=== PATIENT | female | born 1940 | race Two or more races ===

== ENCOUNTER 2017-03-30 11:03 | Day surgery (SDC) | payer BC, OTHER ==
[~2017-03-30 11:03] MED LIST: BALANCED SALT IRRIG SOLN COMB1 500 ML, VANCOMYCIN FOR BSS PLUS 10 MG, GENTAMICIN SULFAT... IO ONE; NORMAL SALINE 0.5 ML, VANCOMYCIN FOR BSS PLUS 5 MG MC ONE
[2017-03-30] MEDS ORDERED: ONDANSETRON IV *ER 4 MG/2 ML VIAL IV ONE (11:04)
[2017-03-30] MEDS ORDERED: LABETALOL HCL 100 MG/20 ML VIAL MC ONE (11:04)
[2017-03-30] MEDS ORDERED: CYCLOPENTOLATE 1% OPHT DROP 2 ML BOTTLE ONE (11:30)
[2017-03-30] MEDS ORDERED: CIPROFLOXACIN 0.3% OPHT DROP 2.5 ML BOTTLE ONE (11:30)
[2017-03-30] MEDS ORDERED: PROPARACAINE 0.5% OPHT DROP 15 ML BOTTLE ONE (11:30)
[2017-03-30] MEDS ORDERED: PHENYLEPHRINE 2.5% OPHT DROP 2 ML BOTTLE ONE (11:31)
[2017-03-30] MEDS ORDERED: TROPICAMIDE 1% OPHT DROP 3 ML BOTTLE ONE (11:31)
[2017-03-30] MEDS ORDERED: KETOROLAC 0.5% OPHT DROP 3 ML BOTTLE ONE (11:32)
[2017-03-30] MEDS ORDERED: LIDOCAINE-MPF 1% 5 ML AMPUL ONE (11:53)
[2017-03-30] MEDS ORDERED: TETRACAINE HCL 0.5% OPHT DROP 2 ML BOTTLE ONE (11:53)
[2017-03-30] MEDS ORDERED: HYALURONATE SODIUM 8.5 MG/0.85 ML DISP.SYRIN ONE (11:54)
[2017-03-30] MEDS ORDERED: ACETYLCHOLINE CHLORIDE 1% OPHT 1 EA KIT ONE (11:54)
[2017-03-30] MEDS ORDERED: BALANCED SALT IRRIG SOLN COMB2 15 ML IRRIG.SOLN ONE (11:54)
[2017-03-30] MEDS ORDERED: MIDAZOLAM HCL 2 MG/2 ML VIAL ONE (13:23)
[2017-03-30] MEDS ORDERED: FENTANYL CITRATE 100 MCG/2 ML AMPUL ONE (13:23)
== END 2017-03-30 16:15 | disposition home or self-care (01) ==
LOC: DS 11:03
PROVIDERS: ATTEND Ophthalmology
DX: H25.9 Unspecified age-related cataract (principal); Z88.8 Allergy status to other drugs, medicaments and biological substances; D64.9 Anemia, unspecified; I73.9 Peripheral vascular disease, unspecified; I10 Essential (primary) hypertension; E78.5 Hyperlipidemia, unspecified; Z90.710 Acquired absence of both cervix and uterus; Z82.49 Family history of ischemic heart disease and other diseases of the circulatory system; Z80.3 Family history of malignant neoplasm of breast; Z90.49 Acquired absence of other specified parts of digestive tract; F41.9 Anxiety disorder, unspecified; F32.9 Major depressive disorder, single episode, unspecified; K21.9 Gastro-esophageal reflux disease without esophagitis; E55.9 Vitamin D deficiency, unspecified; I25.10 Atherosclerotic heart disease of native coronary artery without angina pectoris; Z79.899 Other long term (current) drug therapy
CPT/HCPCS: 66984; A4663; J0171; J1580; J2250; J2405; J3010; J3370 ×2; J3490 ×2; J7120; J7321; V2632

== ENCOUNTER 2017-04-20 07:46 | Day surgery (SDC) | payer BC, OTHER ==
[2017-04-20 08:11] LABS: *BILIRUBIN,URIN NEGATIVE (NEGATIVE); *BLOOD, URINE NEGATIVE (NEGATIVE); *CLARITY,URINE CLEAR (CLEAR); *COLOR,URINE YELLOW (YELLOW); *KETONES,URINE NEGATIVE (NEGATIVE); *PROTEIN,URINE NEGATIVE (NEGATIVE); *UROBILINOGEN,URINE 0.2 E.U./dl (NORMAL); LEUKOCYTE ESTERASE ,URINE TRACE (NEGATIVE); NITRITE, URINE NEGATIVE (NEGATIVE); UGLUCOSE NEGATIVE (NEGATIVE)
[2017-04-20] MEDS ORDERED: CIPROFLOXACIN 0.3% OPHT DROP 2.5 ML BOTTLE ONE (08:13)
[2017-04-20] MEDS ORDERED: PROPARACAINE 0.5% OPHT DROP 15 ML BOTTLE ONE (08:13)
[2017-04-20] MEDS ORDERED: PHENYLEPHRINE 2.5% OPHT DROP 2 ML BOTTLE ONE (08:14)
[2017-04-20] MEDS ORDERED: CYCLOPENTOLATE 1% OPHT DROP 2 ML BOTTLE ONE (08:14)
[2017-04-20] MEDS ORDERED: TROPICAMIDE 1% OPHT DROP 3 ML BOTTLE ONE (08:15)
[2017-04-20] MEDS ORDERED: KETOROLAC 0.5% OPHT DROP 3 ML BOTTLE ONE (08:15)
[2017-04-20 08:25] LABS: BACTERIA,URINE NONE SEEN /HPF (NONE SEEN); SQUAMOUS EPITHELIAL CELL,UR FEW /HPF (NONE SEEN); WBC,URINE 20-50 /HPF (0-3)
[2017-04-20] MEDS ORDERED: TETRACAINE HCL 0.5% OPHT DROP 2 ML BOTTLE ONE (08:29)
[2017-04-20] MEDS ORDERED: BALANCED SALT IRRIG SOLN COMB2 15 ML IRRIG.SOLN ONE (08:29)
[2017-04-20] MEDS ORDERED: ACETYLCHOLINE CHLORIDE 1% OPHT 1 EA KIT ONE (08:29)
[2017-04-20] MEDS ORDERED: HYALURONATE SODIUM 8.5 MG/0.85 ML DISP.SYRIN ONE (08:29)
[2017-04-20 08:33] LABS: BASOPHILS # (AUTO) 0.1 K/uL (0.0-8.0); BASOPHILS % (AUTO) 0.6 % (0.0-2.0); EOSINOPHILS # (AUTO) 0.1 K/uL (0.0-0.7); EOSINOPHILS % (AUTO) 0.6 % (0.0-7.0); HEMATOCRIT 37.6 % (31.2-41.9); HEMOGLOBIN 13.1 g/dL (10.9-14.3); LYMPHOCYTES % (AUTO) 20.5 % (20.5-51.5); MEAN CORPUSCULAR HEMOGLOBIN 30.8 uug (24.7-32.8); MEAN CORPUSCULAR HGB CONC 35 g/dL (32.3-35.6); MEAN CORPUSCULAR VOLUME 88.6 fL (75.5-95.3); MONOCYTES # (AUTO) 0.7 K/uL (2.0-10.0); MONOCYTES % (AUTO) 6.7 % (0.0-11.0); NEUTROPHILS # (AUTO) 7.1 K/uL (1.8-8.9); NEUTROPHILS % (AUTO) 71.6 % (38.5-71.5); PLATELET COUNT (AUTO) 261 K/uL (179-408); RED BLOOD CELL COUNT(AUTO) 4.24 MIL/uL (3.63-4.92)
[2017-04-20] MEDS ORDERED: MIDAZOLAM HCL 2 MG/2 ML VIAL ONE (09:13)
[2017-04-20] MEDS ORDERED: FENTANYL CITRATE 100 MCG/2 ML AMPUL ONE (09:13)
[2017-04-20 09:15] LABS: CARBON DIOXIDE 26 mmol/L (21-32); CHLORIDE 107 mmol/L (98-107); GLUCOSE 97 mg/dL (74-106); POTASSIUM 3.9 mmol/L (3.5-5.1); UREA NITROGEN, BLOOD 32 mg/dL (7-18)
== END 2017-04-20 11:38 | disposition home or self-care (01) ==
LOC: DS 07:46
PROVIDERS: ATTEND Ophthalmology
DX: H26.9 Unspecified cataract (principal); I25.10 Atherosclerotic heart disease of native coronary artery without angina pectoris; I10 Essential (primary) hypertension; K21.9 Gastro-esophageal reflux disease without esophagitis; Z88.8 Allergy status to other drugs, medicaments and biological substances; G89.29 Other chronic pain; M19.90 Unspecified osteoarthritis, unspecified site; F41.9 Anxiety disorder, unspecified; R00.0 Tachycardia, unspecified; Z90.710 Acquired absence of both cervix and uterus
CPT/HCPCS: 36415; 66984; 80048; 81001; 85025; 85730; A4663; J0171; J1580; J2250; J3010; J3370 ×2; J7120; J7321; V2632

== ENCOUNTER 2018-10-11 17:18 | Inpatient (IN) | payer BC, MEDICARE, OTHER ==
[~2018-10-11] VITALS: Ht 152.4 cm; Wt 72.6 kg
[2018-10-11 16:50] VITALS: BP 187/92
[2018-10-11] MEDS ORDERED: ACET-2154 PO (17:45)
[2018-10-11] MEDS ORDERED: ALPR0.255 PO (17:45)
[2018-10-11] MEDS ORDERED: DOCU250C14 PO (17:49)
[2018-10-11] MEDS ORDERED: ATOR40TA PO (17:49)
[2018-10-11] MEDS ORDERED: DILT300C36 PO (17:49)
[2018-10-11] MEDS ORDERED: PANT40TA4 PO (18:00)
[2018-10-11] MEDS ORDERED: ENOX40DI SQ (18:00)
[2018-10-11] MEDS ORDERED: BUPR150T5 PO (18:00)
[2018-10-11] MEDS ORDERED: ISOS60TA4 PO (18:00)
[2018-10-11] MEDS ORDERED: ACETAMINOPHEN 325 MG TABLET PO PRN (18:00)
[2018-10-11] MEDS ORDERED: SENN-18 PO (18:00)
[2018-10-11] MEDS ORDERED: HYDR100T27 PO (18:00)
[2018-10-11] MEDS ORDERED: DULO30CA2 PO (18:00)
[2018-10-11] MEDS ORDERED: ALPRAZOLAM 0.25 MG TABLET PO PRN (18:00)
--- NOTE | 2018-10-11 18:14 | NUR ---
Patient arrived to unit at 1710 via gurney and ambulanz service, vitals noted at 178/92, 99.0 oral temperature, 91 HR, 98% O2 on room air, pain 6/10, SPINNER OPERATOR MD Bernadette Feliciano notified of patients arrival and pain level with orders for percocet and Mscontin as displayed in EMAR, call light placed in reach, bed locked and in lowest position
[2018-10-11] MEDS ORDERED: OXYCODONE/APAP 5-325 MG TABLET PO PRN (18:15)
[2018-10-11] MEDS: ISOSORBIDE MONONITRATE 60 MG TAB.SR.24H PO SCH (20:06)
[2018-10-11] MEDS: ATORVASTATIN 40 MG TABLET PO SCH (20:06)
[2018-10-11] MEDS: hydrALAZINE HCL 50 MG TABLET PO SCH (20:07)
[2018-10-11] MEDS: SENNOSIDES 1 TABLET PO SCH (20:07)
[2018-10-11] MEDS: DULOXETINE 30 MG CAPSULE.DR PO SCH (20:07)
[2018-10-11] MEDS ORDERED: MORPHINE SULFATE SR 30 MG TABLET.SA PO SCH (21:00)
[2018-10-11] MEDS ORDERED: MORPHINE SULFATE SR 15 MG TABLET.SA PO SCH (21:00)
[2018-10-11 21:03] VITALS: BP 177/82
--- NOTE | 2018-10-11 21:54 | NUR ---
Received pt resting in bed. AAO x4. No acute distress noted. Denies pain or discomfort. Meds given as ordered. Pertinent assessment done. Safety measures maintained. Call light and personal belongings within reach. Will continue to monitor.
[2018-10-12 04:45] VITALS: BP 155/86
[2018-10-12] MEDS: PANTOPRAZOLE SODIUM 40 MG TABLET.DR PO SCH (06:32)
[2018-10-12] MEDS: ENOXAPARIN SODIUM 40 MG/0.4 ML DISP.SYRIN SQ SCH (08:11)
[2018-10-12] MEDS: buPROPion SR 150 MG TABLET.SA PO SCH (08:13)
[2018-10-12] MEDS: HYDROCODONE/APAP 5-325MG TABLET PO PRN ×2 (08:14→14:01)
[2018-10-12] MEDS: DOCUSATE SODIUM 250 MG CAPSULE PO SCH (08:14)
[2018-10-12] MEDS: hydrALAZINE HCL 50 MG TABLET PO SCH ×2 (08:17→21:32)
[2018-10-12] MEDS: DILTIAZEM HCL CD 300 MG CAP.SR.24H PO SCH (08:18)
--- NOTE | 2018-10-12 08:20 | NUR ---
Received patient, awake alert x4. Not in any form of distress. With pain over left lower back. PRN [place] given. Morning care done.
[2018-10-12 09:06] VITALS: BP 159/93
--- NOTE | 2018-10-12 14:20 | NUR ---
Up with physical therapy, tolerating well. [place] 5-325 given. Patient able to ambulate with FWW with assist.
[2018-10-12] MEDS ORDERED: OXYCODONE HCL 5 MG TABLET PO PRN (16:00)
[2018-10-12] MEDS ORDERED: BISACODYL 5 MG TABLET.DR PO PRN (16:00)
[2018-10-12 16:34] VITALS: BP 159/72
[2018-10-12] MEDS: OXYCODONE HCL 5 MG TABLET PO PRN (19:01)
--- NOTE | 2018-10-12 19:45 | NUR ---
RECEIVED REPORT FROM STEW WESTBROOK. PT IS STABLE AND IS RESTING IN BED. Imelda PEÑA RN
[2018-10-12 19:46] VITALS: BP 157/81
[2018-10-12] MEDS: ATORVASTATIN 40 MG TABLET PO SCH (21:27)
[2018-10-12] MEDS: DULOXETINE 30 MG CAPSULE.DR PO SCH (21:27)
[2018-10-12] MEDS: SENNOSIDES 1 TABLET PO SCH (21:27)
[2018-10-12] MEDS: ISOSORBIDE MONONITRATE 60 MG TAB.SR.24H PO SCH (21:32)
--- NOTE | 2018-10-13 | NUR ---
PT IS STABLE AND RESTING, SHOWING NO SIGNS OF DISTRESS. WILL CONTINUE TO MONITOR. Imelda PEÑA RN
[2018-10-13 05:48] VITALS: BP 147/72
[2018-10-13] MEDS: PANTOPRAZOLE SODIUM 40 MG TABLET.DR PO SCH (07:10)
--- NOTE | 2018-10-13 07:16 | NUR ---
REPORT GIVEN TO STEW WESTBROOK. PT IS STABLE AND ALERT, RESTING COMFORTABLY, NO SIGNS OF DISTRESS. Imelda PEÑA RN
[2018-10-13 08:01] VITALS: BP 176/84
--- NOTE | 2018-10-13 08:05 | NUR ---
Received patient, awake, alert x4. Not in any form of distress. No chest pains or SOB noted. With pain over left lower back rated as 7/10. PRN Oxycodone given.
[2018-10-13] MEDS: DOCUSATE SODIUM 250 MG CAPSULE PO SCH (08:55)
[2018-10-13] MEDS: DILTIAZEM HCL CD 300 MG CAP.SR.24H PO SCH (08:55)
[2018-10-13] MEDS: buPROPion SR 150 MG TABLET.SA PO SCH (08:55)
[2018-10-13] MEDS: hydrALAZINE HCL 50 MG TABLET PO SCH ×2 (08:55→20:12)
[2018-10-13] MEDS: ENOXAPARIN SODIUM 40 MG/0.4 ML DISP.SYRIN SQ SCH (08:56)
[2018-10-13] MEDS: OXYCODONE HCL 5 MG TABLET PO PRN ×3 (08:57→18:17)
--- NOTE | 2018-10-13 10:00 | NUR ---
Informed Dr Valentin of BP of 176/84 HR 84. Patient said her baseline would be in the 150s. ordered labs for tomorrow and said to monitor BP.
--- NOTE | 2018-10-13 13:30 | NUR ---
PRN Oxycodone given. Patient tolerated therapy well, was able to ambulate with front wheel walker.
[2018-10-13 16:39] VITALS: BP 134/70
[2018-10-13] MEDS: MIRALAX 17 GM POWD.PACK PO PRN (17:51)
[2018-10-13] MEDS: ATORVASTATIN 40 MG TABLET PO SCH (20:12)
[2018-10-13] MEDS: DULOXETINE 30 MG CAPSULE.DR PO SCH (20:12)
[2018-10-13] MEDS: SENNOSIDES 1 TABLET PO SCH (20:12)
[2018-10-13] MEDS: ISOSORBIDE MONONITRATE 60 MG TAB.SR.24H PO SCH (20:13)
[2018-10-13 20:30] VITALS: BP 152/75
--- NOTE | 2018-10-13 20:48 | NUR ---
awake alert and oriented upon initial rounds. no acute distress noted. tolerated po meds well. continent of bowel and bladder. No BM this shift. On pain management. Denies any pain at this time. VSS BP 152/75 HR 100 Resp 18 Temp 98.6 pulse Ox 96% RA BP meds given. Will monitor patient. Fall precautions maintained. Siderails up for safety. Call husain within reach.
[2018-10-14 05:38] VITALS: BP 100/64
[2018-10-14] MEDS: PANTOPRAZOLE SODIUM 40 MG TABLET.DR PO SCH (06:32)
--- NOTE | 2018-10-14 06:40 | NUR ---
quiet night. slept well most of the shift. denies any pain at this time. VSS will monitor patient. Kept comfortable.
--- NOTE | 2018-10-14 07:40 | NUR ---
Patient awake, alert, in bed, not in any form of distress. She denies any pain or discomfort at this time. Call light and frequently used items placed within reach.
[2018-10-14 08:05] VITALS: BP 121/79
[2018-10-14] MEDS: DOCUSATE SODIUM 250 MG CAPSULE PO SCH (08:38)
[2018-10-14] MEDS: DILTIAZEM HCL CD 300 MG CAP.SR.24H PO SCH (08:39)
[2018-10-14] MEDS: hydrALAZINE HCL 50 MG TABLET PO SCH ×2 (08:40→20:07)
[2018-10-14] MEDS: buPROPion SR 150 MG TABLET.SA PO SCH (08:40)
[2018-10-14] MEDS: OXYCODONE HCL 5 MG TABLET PO PRN ×3 (08:41→22:45)
[2018-10-14] MEDS: ENOXAPARIN SODIUM 40 MG/0.4 ML DISP.SYRIN SQ SCH (08:47)
--- NOTE | 2018-10-14 12:44 | NUR ---
Patient seen by Dr. Fleming with order for [place] 2 gm apply topically to back TID PRN for pain
--- NOTE | 2018-10-14 14:15 | NUR ---
INDIVIDUALIZED PLAN OF CARE
[2018-10-14 16:11] VITALS: BP 149/78
[2018-10-14] MEDS: MIRALAX 17 GM POWD.PACK PO PRN (16:26)
[2018-10-14 19:41] VITALS: BP 165/72
[2018-10-14] MEDS: ATORVASTATIN 40 MG TABLET PO SCH (20:06)
[2018-10-14] MEDS: SENNOSIDES 1 TABLET PO SCH (20:06)
[2018-10-14] MEDS: DULOXETINE 30 MG CAPSULE.DR PO SCH (20:06)
[2018-10-14] MEDS: ISOSORBIDE MONONITRATE 60 MG TAB.SR.24H PO SCH (20:07)
--- NOTE | 2018-10-14 20:21 | NUR ---
Received pt resting in bed. AAO x4. No acute distress noted. No c/o pain or discomfort at this time. All due meds given as ordered. Safety measures maintained. Call light and personal belongings within reach. Will continue to monitor.
[2018-10-14] MEDS: METHYL SALICYLATE/MENTHOL CREAM 28 GM TUBE TOP PRN (22:45)
[2018-10-15 05:49] VITALS: BP 136/66
[2018-10-15] MEDS: PANTOPRAZOLE SODIUM 40 MG TABLET.DR PO SCH (06:30)
[2018-10-15] MEDS: hydrALAZINE HCL 50 MG TABLET PO SCH ×2 (08:31→20:15)
[2018-10-15] MEDS: OXYCODONE HCL 5 MG TABLET PO PRN ×2 (08:31→12:54)
[2018-10-15] MEDS: buPROPion SR 150 MG TABLET.SA PO SCH (08:33)
[2018-10-15] MEDS: DILTIAZEM HCL CD 300 MG CAP.SR.24H PO SCH (08:34)
[2018-10-15] MEDS: DOCUSATE SODIUM 250 MG CAPSULE PO SCH (08:34)
[2018-10-15] MEDS: ENOXAPARIN SODIUM 40 MG/0.4 ML DISP.SYRIN SQ SCH (08:44)
[2018-10-15] MEDS: ATORVASTATIN 40 MG TABLET PO SCH (20:14)
[2018-10-15] MEDS: SENNOSIDES 1 TABLET PO SCH (20:14)
[2018-10-15] MEDS: DULOXETINE 30 MG CAPSULE.DR PO SCH (20:15)
[2018-10-15] MEDS: ISOSORBIDE MONONITRATE 60 MG TAB.SR.24H PO SCH (20:15)
[2018-10-15 20:16] VITALS: BP 168/79
--- NOTE | 2018-10-15 20:32 | NUR ---
Received pt resting in bed and watching tv. AAO x4. No acute distress noted. No c/o pain or discomfort. Pt stated that she was able to tolerate the therapy today compared to yesterday. All due meds given as ordered. Pt stated that she has not had BM for a couple of days already because she hasn't been eating enough. Pt's sister brought some food for the pt. Routine senokot given. Safety measures maintained. Call light and personal belongings within reach. Will continue to monitor.
[2018-10-16] MEDS: OXYCODONE HCL 5 MG TABLET PO PRN ×3 (00:40→15:37)
[2018-10-16 05:21] VITALS: BP 134/74
[2018-10-16] MEDS: PANTOPRAZOLE SODIUM 40 MG TABLET.DR PO SCH (06:30)
--- NOTE | 2018-10-16 08:00 | NUR ---
Received patient awake, alert x4. With pain over left lower back, PRN Oxycodone given. PRN Bengay applied. Not in any form of distress. Morning care done, oral care done.
[2018-10-16] MEDS: hydrALAZINE HCL 50 MG TABLET PO SCH ×2 (08:13→20:24)
[2018-10-16] MEDS: DOCUSATE SODIUM 250 MG CAPSULE PO SCH (08:14)
[2018-10-16] MEDS: buPROPion SR 150 MG TABLET.SA PO SCH (08:14)
[2018-10-16] MEDS: DILTIAZEM HCL CD 300 MG CAP.SR.24H PO SCH (08:14)
[2018-10-16] MEDS: METHYL SALICYLATE/MENTHOL CREAM 28 GM TUBE TOP PRN ×2 (08:16→15:37)
[2018-10-16] MEDS: ENOXAPARIN SODIUM 40 MG/0.4 ML DISP.SYRIN SQ SCH (08:16)
[2018-10-16 09:00] VITALS: BP 165/80
--- NOTE | 2018-10-16 10:39 | NUR ---
Up with physical therapy, patient still in pain over left lower back. Informed Dr Fleming and ordered MS Contin Q12 ATC.
[2018-10-16] MEDS: MORPHINE SULFATE SR 15 MG TABLET.SA PO SCH ×2 (12:28→21:45)
[2018-10-16 16:00] VITALS: BP_SYST 118; BP_SYST 154; BP_DIAS 54; BP_DIAS 68
[2018-10-16] MEDS ORDERED: BISACODYL 10 MG SUPP.RECT RC ONE (16:45)
[2018-10-16 19:28] VITALS: BP 152/84
--- NOTE | 2018-10-16 19:32 | NUR ---
Patient still with no BM, informed Dr Sparks, ordered Lactulose 30 grams PO BID and Sorbitol 30 ml BID to start today scheduled until first loose stool.
[2018-10-16] MEDS: DULOXETINE 30 MG CAPSULE.DR PO SCH (20:24)
[2018-10-16] MEDS: ATORVASTATIN 40 MG TABLET PO SCH (20:24)
[2018-10-16] MEDS: SENNOSIDES 1 TABLET PO SCH (20:24)
[2018-10-16] MEDS: ISOSORBIDE MONONITRATE 60 MG TAB.SR.24H PO SCH (20:24)
[2018-10-16] MEDS: SORBITOL 70% SOLUTION 30 ML UDC PO SCH (20:30)
[2018-10-16] MEDS: LACTULOSE 20 G/30 ML LIQUID UDC PO SCH (20:30)
--- NOTE | 2018-10-17 00:18 | NUR ---
Received pt in bed, AAO x 4, watching television. No acute distress noted. Verbally responsive and able to make needs known. Denies pain upon movement but states that "when she goes to the bathroom, that is when the pain is the most excruciating." All due medications given as ordered, tolerated well. All safety measures and fall precautions maintained. Call light and all personal belongings within reach. Will continue to monitor.
[2018-10-17] MEDS: OXYCODONE HCL 5 MG TABLET PO PRN ×3 (05:17→16:39)
[2018-10-17 05:20] VITALS: BP 157/80
[2018-10-17] MEDS: PANTOPRAZOLE SODIUM 40 MG TABLET.DR PO SCH (06:34)
--- NOTE | 2018-10-17 08:01 | NUR ---
Patient awake, alert, in bed, not in any form of distress. No complain of any pain or discomfort at this time. Call light and frequently used items placed within reach.
[2018-10-17 08:25] VITALS: BP 131/75
[2018-10-17] MEDS: hydrALAZINE HCL 50 MG TABLET PO SCH ×2 (08:27→20:42)
[2018-10-17] MEDS: MORPHINE SULFATE SR 15 MG TABLET.SA PO SCH ×2 (08:28→21:51)
[2018-10-17] MEDS: DOCUSATE SODIUM 250 MG CAPSULE PO SCH (08:28)
[2018-10-17] MEDS: buPROPion SR 150 MG TABLET.SA PO SCH (08:28)
[2018-10-17] MEDS: DILTIAZEM HCL CD 300 MG CAP.SR.24H PO SCH (08:29)
[2018-10-17] MEDS: LACTULOSE 20 G/30 ML LIQUID UDC PO SCH ×2 (08:30→20:40)
[2018-10-17] MEDS: ENOXAPARIN SODIUM 40 MG/0.4 ML DISP.SYRIN SQ SCH (08:32)
[2018-10-17] MEDS: SORBITOL 70% SOLUTION 30 ML UDC PO SCH ×2 (08:37→20:40)
--- NOTE | 2018-10-17 10:22 | NUR ---
Followed up with Dr. Fleming if OK to administer OxyIR QID PRN even if less than 6 hrs interval since patient is in pain, per MD it is OK.
[2018-10-17 16:00] VITALS: BP 110/70
[2018-10-17 19:20] VITALS: BP 139/66
[2018-10-17] MEDS: SENNOSIDES 1 TABLET PO SCH (20:40)
[2018-10-17] MEDS: DULOXETINE 30 MG CAPSULE.DR PO SCH (20:41)
[2018-10-17] MEDS: ATORVASTATIN 40 MG TABLET PO SCH (20:41)
[2018-10-17] MEDS: ISOSORBIDE MONONITRATE 60 MG TAB.SR.24H PO SCH (20:41)
[2018-10-17] MEDS: METHYL SALICYLATE/MENTHOL CREAM 28 GM TUBE TOP PRN (20:48)
--- NOTE | 2018-10-17 21:33 | NUR ---
Received pt in bed, AAO x 4 watching television. No acute distress noted. Verbally responsive and able to make needs known. Denies pain or discomfort. Assisted pt to bathroom, loose stool x 1. Lactulose, sorbitol and senokot held. All safety measures and fall precautions maintained. Due medications given as ordered, tolerated well. Call light and all personal belongings within reach. Will continue to monitor.
[2018-10-17 21:45] VITALS: BP 124/64
[2018-10-18 05:41] VITALS: BP 119/62
[2018-10-18] MEDS: PANTOPRAZOLE SODIUM 40 MG TABLET.DR PO SCH (06:35)
--- NOTE | 2018-10-18 07:46 | NUR ---
Patient noted laying in bed, laborer construction or leak gang noted in room to draw blood at this time, no complaints of pain at this time, no signs of distress noted, call light noted in reach, bed locked and in lowest position, all needs met at this time
[2018-10-18] MEDS: buPROPion SR 150 MG TABLET.SA PO SCH (08:14)
[2018-10-18] MEDS: MORPHINE SULFATE SR 15 MG TABLET.SA PO SCH ×2 (08:14→20:13)
[2018-10-18] MEDS: DILTIAZEM HCL CD 300 MG CAP.SR.24H PO SCH (08:15)
[2018-10-18] MEDS: hydrALAZINE HCL 50 MG TABLET PO SCH ×2 (08:15→20:14)
[2018-10-18] MEDS: DOCUSATE SODIUM 250 MG CAPSULE PO SCH (08:16)
[2018-10-18] MEDS: LACTULOSE 20 G/30 ML LIQUID UDC PO SCH ×2 (08:16→20:11)
[2018-10-18] MEDS: SORBITOL 70% SOLUTION 30 ML UDC PO SCH ×2 (08:17→20:12)
[2018-10-18 08:19] LABS: BASOPHILS # (AUTO) 0.1 K/uL (0.0-8.0); BASOPHILS % (AUTO) 0.6 % (0.0-2.0); EOSINOPHILS # (AUTO) 0.1 K/uL (0.0-0.7); EOSINOPHILS % (AUTO) 1.2 % (0.0-7.0); HEMATOCRIT 36.4 % (31.2-41.9); HEMOGLOBIN 12.1 g/dL (10.9-14.3); LYMPHOCYTES # (AUTO) 1.5 K/uL (20.0-40.0); LYMPHOCYTES % (AUTO) 15.8 % (20.5-51.5); MEAN CORPUSCULAR HEMOGLOBIN 29.6 uug (24.7-32.8); MEAN CORPUSCULAR HGB CONC 33 g/dL (32.3-35.6); MONOCYTES # (AUTO) 0.7 K/uL (2.0-10.0); NEUTROPHILS # (AUTO) 6.8 K/uL (1.8-8.9); NEUTROPHILS % (AUTO) 74.4 % (38.5-71.5); PLATELET COUNT (AUTO) 204 K/uL (179-408); RED BLOOD CELL COUNT(AUTO) 4.09 MIL/uL (3.63-4.92); WHITE BLOOD COUNT (AUTO) 9.2 K/uL (3.8-11.8)
[2018-10-18] MEDS: ENOXAPARIN SODIUM 40 MG/0.4 ML DISP.SYRIN SQ SCH (08:23)
[2018-10-18 09:00] VITALS: BP 139/66
[2018-10-18 09:00] LABS: ALANINE AMINOTRANSFERASE 18 U/L (14-59); ALKALINE PHOSPHATASE 115 U/L (50-136); ASPARTATE AMINOTRANSFERASE 9 U/L (15-37); BILIRUBIN,TOTAL 0.5 mg/dL (0.2-1.0); CARBON DIOXIDE 31 mmol/L (21-32); CHLORIDE 103 mmol/L (98-107); CHOLESTEROL 98 mg/dL (<200); CREATININE 0.8 mg/dL (0.6-1.3); GLUCOSE 101 mg/dL (74-106); HDL CHOLESTEROL 47 mg/dL (40-60); POTASSIUM 3.8 mmol/L (3.5-5.1); TOTAL PROTEIN, SERUM 6.2 g/dL (6.4-8.2); TRIGLYCERIDES 73 MG/DL (30-150); UREA NITROGEN, BLOOD 25 mg/dL (7-18)
[2018-10-18 10:10] LABS: THYROID STIMULATING HORMONE 1.157 mIU/mL (0.358-3.740)
[2018-10-18] MEDS: OXYCODONE HCL 5 MG TABLET PO PRN (11:36)
--- NOTE | 2018-10-18 14:39 | NUR ---
Patient refused all medications for BM, complaints of loose stool noted
[2018-10-18 18:18] VITALS: BP 140/75
[2018-10-18 19:45] VITALS: BP 169/74
[2018-10-18] MEDS: SENNOSIDES 1 TABLET PO SCH (20:12)
[2018-10-18] MEDS: ATORVASTATIN 40 MG TABLET PO SCH (20:12)
[2018-10-18] MEDS: DULOXETINE 30 MG CAPSULE.DR PO SCH (20:13)
[2018-10-18] MEDS: ISOSORBIDE MONONITRATE 60 MG TAB.SR.24H PO SCH (20:23)
[2018-10-19] MEDS: OXYCODONE HCL 5 MG TABLET PO PRN ×3 (01:35→16:43)
[2018-10-19 04:20] VITALS: BP 150/74
--- NOTE | 2018-10-19 04:21 | NUR ---
Patient received in bed, AAO x4, able to make needs known. No acute distress or SOB noted. On room air with O2 sat 95%. Complained of pain on her lower back and right hip, rated 6/10 in numeric scale. Physical assessment done. Pain assessed and reassessed after pain medication. All due medications given as ordered and well tolerated. Assisted her to the bathroom as needed. Keep her clean and dry. Hourly round done. Safety measures observed. Fall precaution maintained. Bed in low position, side rails up x2 for safety, brake and alarm on. call light and personal belongings within reach. Continue to monitor and will endorse to the day shift nurse accordingly.
[2018-10-19] MEDS: PANTOPRAZOLE SODIUM 40 MG TABLET.DR PO SCH (06:39)
[2018-10-19] MEDS: CYANOCOBALAMIN 1000 MCG/ML VIAL IM SCH (08:33)
[2018-10-19] MEDS: ENOXAPARIN SODIUM 40 MG/0.4 ML DISP.SYRIN SQ SCH (08:34)
[2018-10-19] MEDS: LACTULOSE 20 G/30 ML LIQUID UDC PO SCH ×2 (08:37→20:36)
[2018-10-19] MEDS: SORBITOL 70% SOLUTION 30 ML UDC PO SCH ×2 (08:37→20:37)
[2018-10-19] MEDS: MORPHINE SULFATE SR 15 MG TABLET.SA PO SCH ×2 (08:38→20:28)
[2018-10-19] MEDS: hydrALAZINE HCL 50 MG TABLET PO SCH ×2 (08:38→20:29)
[2018-10-19] MEDS: DOCUSATE SODIUM 250 MG CAPSULE PO SCH (08:39)
[2018-10-19] MEDS: DILTIAZEM HCL CD 300 MG CAP.SR.24H PO SCH (08:39)
[2018-10-19] MEDS: buPROPion SR 150 MG TABLET.SA PO SCH (08:47)
[2018-10-19 09:00] VITALS: BP 166/87
--- NOTE | 2018-10-19 09:00 | NUR ---
Received patient, awake, alert x4. Resting in bed, with lower back pain rated as 7/10. Not in any form of distress. No headaches, SOB or chest pains noted. Still with no BM. Morning care done, oral care done.
--- NOTE | 2018-10-19 11:53 | NUR ---
Up with occupational therapy, tolerating well. Routine pain medications given prior to therapy.
--- NOTE | 2018-10-19 15:15 | NUR ---
Per Dr. Fleming's order said to secure consent for Lumbar Epidural Steroid injection tomorrow at 1PM. No NPO needed per Dr Fleming.
[2018-10-19 17:00] VITALS: BP 144/77
[2018-10-19 20:04] VITALS: BP 132/67
[2018-10-19] MEDS: DULOXETINE 30 MG CAPSULE.DR PO SCH (20:27)
[2018-10-19] MEDS: ATORVASTATIN 10 MG TABLET PO SCH (20:27)
[2018-10-19] MEDS: ISOSORBIDE MONONITRATE 60 MG TAB.SR.24H PO SCH (20:28)
[2018-10-19] MEDS: SENNOSIDES 1 TABLET PO SCH (20:37)
--- NOTE | 2018-10-19 21:19 | NUR ---
Received pt resting in bed. AAO x4. No acute distress noted. C/o 3-09/13 pain on the lower back. Assisted to the bathroom, BM x1. Due meds given as ordered. Stool softener/ laxative meds held since pt had 3 bowel movements today. Safety measures maintained. Call light and personal belongings within reach. Will continue to monitor.
--- NOTE | 2018-10-19 21:30 | NUR ---
Consent form signed and placed in chart.
[2018-10-20 06:00] VITALS: BP 136/58
[2018-10-20 06:03] VITALS: BP 136/58
[2018-10-20] MEDS: PANTOPRAZOLE SODIUM 40 MG TABLET.DR PO SCH (06:34)
[2018-10-20 07:30] VITALS: BP 173/80
[2018-10-20] MEDS: hydrALAZINE HCL 50 MG TABLET PO SCH ×2 (08:50→21:12)
[2018-10-20] MEDS: CYANOCOBALAMIN 1000 MCG/ML VIAL IM SCH (08:50)
[2018-10-20] MEDS: DOCUSATE SODIUM 250 MG CAPSULE PO SCH (08:51)
[2018-10-20] MEDS: DILTIAZEM HCL CD 300 MG CAP.SR.24H PO SCH (08:52)
[2018-10-20] MEDS: buPROPion SR 150 MG TABLET.SA PO SCH (08:53)
[2018-10-20] MEDS ORDERED: TRIAMCINOLONE ACETONIDE 40 MG/1 ML VIAL ONE (08:57)
[2018-10-20] MEDS ORDERED: IOHEXOL-240 MG , 50 ML VIAL IV ONE (08:58)
[2018-10-20] MEDS ORDERED: LIDOCAINE HCL-MPF 1% 5 ML VIAL ONE (08:58)
[2018-10-20] MEDS: SORBITOL 70% SOLUTION 30 ML UDC PO SCH ×2 (09:00→20:21)
[2018-10-20] MEDS: ENOXAPARIN SODIUM 40 MG/0.4 ML DISP.SYRIN SQ SCH ×2 (09:00→09:03)
[2018-10-20] MEDS: LACTULOSE 20 G/30 ML LIQUID UDC PO SCH ×2 (09:00→20:21)
[2018-10-20] MEDS: MORPHINE SULFATE SR 15 MG TABLET.SA PO SCH ×2 (09:01→20:16)
--- NOTE | 2018-10-20 09:48 | NUR ---
patient is in bed, awake, alert, oriented x4, no sob, respirations are even nonlabored,skin warm and dry to touch, no acute distress noted at this time
--- NOTE | 2018-10-20 09:49 | NUR ---
patient is going for epidural today in OR unit, lovanex held as ordered by Dr Cheung.
[2018-10-20] MEDS: OXYCODONE HCL 5 MG TABLET PO PRN (12:05)
--- NOTE | 2018-10-20 12:37 | NUR ---
INTERDISCIPLINARY TEAM CONFERENCE
--- NOTE | 2018-10-20 12:45 | NUR ---
PATIENT WENT DOWN TO OR FOR EPIDURAL STEROIDS INJECTION WITH TWO OR NURSES.
--- NOTE | 2018-10-20 14:24 | NUR ---
PATIENT CAME BACK FROM OR AFTER EPIDURAL. PATIENT IS ALERT, ORIENTED X4, AWAKE, VERBALLY RESPONSIVE, NO SOB, RESP EVEN NONLABORED, SKIN WARM AND DRY TO TOUCH, VITALS BP 136/70,PULSE 100,RESP 16,TEMP 98.8, PAIN 0/10. NO ACUTE DISTRESS NOTED AT THIS TIME,
[2018-10-20 18:00] VITALS: BP 146/78
--- NOTE | 2018-10-20 18:46 | NUR ---
END OF THE SHIFT NOTE PATIENT IS SITTING IN BED TALKING TO HER FRIEND WHO IS VISING HER, ALERT, ORIENTED X4, VERBALLY RESPONSIVE, NO SOB, RESP EVEN NONLABORED,SKIN WARM AND DRY TO TOUCH, NO ACUTE DISTRESS NOTED AT THIS TIME, TOLERATED MEALS AND MEDS WELL, STATUS POST EPIDURAL INJECTION, NO SIGNS AND SYMPTOMS OF BLEEDING NOTED AT SITE, DRESSING INTACT AND DRY. NOTED WITH PULSE IN 100s -110s. DR MCCANN AWARE, STARTING TONIGHT ON METOPROLOL ORDERED. HOWEVER PATIENT DENIED ANY PALPITATIONS, DENIED CHEST PAIN , PATIENT STATED, " I FEEL FINE" WILL ENDORSE NEXT SHIFT ACCORDINGLY.
[2018-10-20 19:26] VITALS: BP 148/68
[2018-10-20] MEDS: ATORVASTATIN 10 MG TABLET PO SCH (20:15)
[2018-10-20] MEDS: SENNOSIDES 1 TABLET PO SCH (20:15)
[2018-10-20] MEDS: ISOSORBIDE MONONITRATE 60 MG TAB.SR.24H PO SCH (20:15)
[2018-10-20] MEDS: METOPROLOL TARTRATE 25 MG TABLET PO SCH (20:15)
[2018-10-20] MEDS: DULOXETINE 30 MG CAPSULE.DR PO SCH (20:15)
--- NOTE | 2018-10-20 20:46 | NUR ---
Received pt resting in bed. AAO x4. No acute distress noted. C/o 5/10 pain on left lower back. Routine meds and pain med given as ordered. Assisted to the bathroom and voided x1. Safety measures maintained. Call light and personal belongings within reach. Will continue to monitor.
[2018-10-20 21:10] VITALS: BP 163/82
[2018-10-21 06:33] VITALS: BP 151/84
[2018-10-21] MEDS: PANTOPRAZOLE SODIUM 40 MG TABLET.DR PO SCH (06:34)
[2018-10-21 07:00] VITALS: BP 175/93
[2018-10-21] MEDS ORDERED: SORBITOL 70% SOLUTION 30 ML UDC PO PRN (07:15)
[2018-10-21] MEDS: ENOXAPARIN SODIUM 40 MG/0.4 ML DISP.SYRIN SQ SCH (08:49)
--- NOTE | 2018-10-21 09:00 | NUR ---
Patient noted resting in bed, complaints of pain 3/10 on left hip, scheduled pain medication given, no signs of distress noted, call light in reach, bed locked and in lowest position, all needs met at this time
[2018-10-21] MEDS: DOCUSATE SODIUM 250 MG CAPSULE PO SCH (09:01)
[2018-10-21] MEDS: buPROPion SR 150 MG TABLET.SA PO SCH (09:01)
[2018-10-21] MEDS: CYANOCOBALAMIN 1000 MCG/ML VIAL IM SCH (09:01)
[2018-10-21] MEDS: hydrALAZINE HCL 50 MG TABLET PO SCH ×2 (09:02→20:25)
[2018-10-21] MEDS: MORPHINE SULFATE SR 15 MG TABLET.SA PO SCH ×2 (09:02→20:26)
[2018-10-21] MEDS: METOPROLOL TARTRATE 25 MG TABLET PO SCH ×2 (09:02→20:24)
[2018-10-21] MEDS: DILTIAZEM HCL CD 300 MG CAP.SR.24H PO SCH (09:03)
[2018-10-21] MEDS: OXYCODONE HCL 5 MG TABLET PO PRN (15:39)
[2018-10-21 16:00] VITALS: BP 184/89
[2018-10-21 19:39] VITALS: BP 156/83
--- NOTE | 2018-10-21 19:51 | NUR ---
Patient received in bed, AAO x4, able to make needs known. No acute distress or SOB noted. On room air. Complained of pain on her left sacroiliac joint rated 3/10 in numeric scale. Physical assessment done. Safety measures observed. Fall precaution maintained. Bed in low position, side rails up x2 for safety, brake and alarm on. call light and personal belongings within reach. Continue to monitor.
[2018-10-21] MEDS: SENNOSIDES 1 TABLET PO SCH (20:24)
[2018-10-21] MEDS: DULOXETINE 30 MG CAPSULE.DR PO SCH (20:25)
[2018-10-21] MEDS: ATORVASTATIN 10 MG TABLET PO SCH (20:25)
[2018-10-21] MEDS: ISOSORBIDE MONONITRATE 60 MG TAB.SR.24H PO SCH (20:25)
[2018-10-21] MEDS ORDERED: LACTULOSE 20 G/30 ML LIQUID UDC PO PRN (21:00)
[2018-10-21] MEDS ORDERED: METOPROLOL TARTRATE 25 MG TABLET PO ONE (21:31)
--- NOTE | 2018-10-22 05:58 | NUR ---
End of the shift note Patient was stable throughout the shift and has a good sleep last night. No acute distress or SOB noted. On room air. Complained of pain on her left sacroiliac joint. VS checked. Physical assessment done. Pain assessed and reassessed after pain medication. All due medications given as ordered and well tolerated. Assisted her to the bathroom as needed. Keep her clean and dry. Hourly round done. Safety measures observed. Fall precaution maintained. Bed in low position, side rails up x2 for safety, brake and alarm on. call light and personal belongings within reach. Continue to monitor and will endorse to the day shift nurse accordingly.
[2018-10-22] MEDS: PANTOPRAZOLE SODIUM 40 MG TABLET.DR PO SCH (06:38)
[2018-10-22 06:45] VITALS: BP 152/77
--- NOTE | 2018-10-22 08:45 | NUR ---
Received awake, alert x4. Not in any form of distress. With pain over left lower hip area rated as 7/10. Morning care done, oral care done.
[2018-10-22] MEDS: CYANOCOBALAMIN 1000 MCG/ML VIAL IM SCH (08:51)
[2018-10-22] MEDS: MORPHINE SULFATE SR 15 MG TABLET.SA PO SCH ×2 (08:52→22:03)
[2018-10-22] MEDS: METOPROLOL TARTRATE 50 MG TABLET PO SCH ×2 (08:52→20:06)
[2018-10-22] MEDS: hydrALAZINE HCL 50 MG TABLET PO SCH ×2 (08:52→20:05)
[2018-10-22] MEDS: buPROPion SR 150 MG TABLET.SA PO SCH (08:53)
[2018-10-22] MEDS: DOCUSATE SODIUM 250 MG CAPSULE PO SCH (08:53)
[2018-10-22] MEDS: DILTIAZEM HCL CD 300 MG CAP.SR.24H PO SCH (08:53)
[2018-10-22 09:00] VITALS: BP 149/88
[2018-10-22] MEDS: ENOXAPARIN SODIUM 40 MG/0.4 ML DISP.SYRIN SQ SCH (09:12)
--- NOTE | 2018-10-22 10:00 | NUR ---
Up with physical therapy, tolerating well. Patient said Dr mentioned to have light exercises for a couple of days after epidural injections. Routine MS Contin given prior to therapy, with tolerable pain levels.
[2018-10-22] MEDS: OXYCODONE HCL 5 MG TABLET PO PRN ×2 (13:23→18:00)
[2018-10-22] MEDS: METHYL SALICYLATE/MENTHOL CREAM 28 GM TUBE TOP PRN (13:23)
--- NOTE | 2018-10-22 19:27 | NUR ---
Patient received in bed, AAO x4, able to make needs known. No acute distress or SOB noted. On room air. No Complain of pain at this time. A visitor was at her bedside. Addressed her concern about her constipation. Physical assessment done. Safety measures observed. Fall precaution maintained. Bed in low position, side rails up x2 for safety, brake and alarm on. call light and personal belongings within reach. Continue to monitor.
[2018-10-22 19:37] VITALS: BP 143/77
[2018-10-22] MEDS: ISOSORBIDE MONONITRATE 60 MG TAB.SR.24H PO SCH (20:04)
[2018-10-22] MEDS: ATORVASTATIN 10 MG TABLET PO SCH (20:04)
[2018-10-22] MEDS: SENNOSIDES 1 TABLET PO SCH (20:05)
[2018-10-22] MEDS: DULOXETINE 30 MG CAPSULE.DR PO SCH (20:05)
[2018-10-23 05:35] VITALS: BP 146/73
--- NOTE | 2018-10-23 05:53 | NUR ---
End of the shift note Patient was stable throughout the shift and has a good sleep last night. No acute distress or SOB noted. On room air. Complained of pain on her left HIP. VS checked. Physical assessment done. Pain assessed and reassessed after pain medication. All due medications given as ordered and well tolerated. Assisted her to the bathroom as needed. Keep her clean and dry. Hourly round done. Safety measures observed. Fall precaution maintained. Bed in low position, side rails up x2 for safety, brake and alarm on. call light and personal belongings within reach. Continue to monitor and will endorse to the day shift nurse accordingly.
[2018-10-23] MEDS: PANTOPRAZOLE SODIUM 40 MG TABLET.DR PO SCH (06:30)
[2018-10-23] MEDS: CYANOCOBALAMIN 1000 MCG/ML VIAL IM SCH (08:15)
[2018-10-23] MEDS: MORPHINE SULFATE SR 15 MG TABLET.SA PO SCH ×2 (08:15→20:25)
[2018-10-23] MEDS: METOPROLOL TARTRATE 50 MG TABLET PO SCH ×2 (08:17→20:24)
[2018-10-23] MEDS: hydrALAZINE HCL 50 MG TABLET PO SCH ×2 (08:17→20:24)
[2018-10-23] MEDS: DILTIAZEM HCL CD 300 MG CAP.SR.24H PO SCH (08:18)
[2018-10-23] MEDS: DOCUSATE SODIUM 250 MG CAPSULE PO SCH (08:18)
[2018-10-23] MEDS: ENOXAPARIN SODIUM 40 MG/0.4 ML DISP.SYRIN SQ SCH (08:19)
[2018-10-23] MEDS: buPROPion SR 150 MG TABLET.SA PO SCH (08:23)
--- NOTE | 2018-10-23 09:36 | NUR ---
patient noted sitting up in bed, assisted to restroom at this time and back to wheelchair, eating breakfast, took all AM medications, scheduled pain medication given for left sided back pain, call light placed in reach, wheelchair locked in place
[2018-10-23] MEDS: OXYCODONE HCL 5 MG TABLET PO PRN (14:08)
[2018-10-23 16:00] VITALS: BP 160/83
--- NOTE | 2018-10-23 19:16 | NUR ---
Patient given PRN pain medication this shift as displayed in EMAR, no signs of distress noted, call light in reach
[2018-10-23 19:22] VITALS: BP 134/69
--- NOTE | 2018-10-23 19:30 | NUR ---
PATIENT ALERT AND ORIENTED X 4. WATCHING TV. NO C/O PAIN, SOB OR DISTRESS. SIDE RAILS UP BILATERALLY FOR SAFETY. CALL LIGHT AND FREQUENTLY USED ITEMS WITHIN REACH. WILL CONTINUE TO MONITOR.
[2018-10-23 19:41] VITALS: BP 152/69
[2018-10-23] MEDS: DULOXETINE 30 MG CAPSULE.DR PO SCH (20:25)
[2018-10-23] MEDS: SENNOSIDES 1 TABLET PO SCH (20:25)
[2018-10-23] MEDS: ATORVASTATIN 10 MG TABLET PO SCH (20:25)
[2018-10-23] MEDS: ISOSORBIDE MONONITRATE 60 MG TAB.SR.24H PO SCH (20:26)
[2018-10-24] MEDS: hydrALAZINE HCL 50 MG TABLET PO SCH ×3 (06:13→21:06)
[2018-10-24 06:24] VITALS: BP 159/78
[2018-10-24] MEDS: PANTOPRAZOLE SODIUM 40 MG TABLET.DR PO SCH (06:31)
--- NOTE | 2018-10-24 06:40 | NUR ---
Patient slept well during the night. All due medications given-tolerated well. Side rails up bilaterally for safety. Call light and frequently used items within reach. Will endorse to oncoming shift accordingly.
[2018-10-24 07:43] VITALS: BP 173/79
--- NOTE | 2018-10-24 08:13 | NUR ---
Patient noted resting in bed with eyes closed, call light in reach, bed locked and in lowest position, no facial cues of pain, no signs of distress noted, Scheduled pain medication given prior to therapy, ate 100% of breakfast, will continue plan of care
[2018-10-24] MEDS: buPROPion SR 150 MG TABLET.SA PO SCH (08:20)
[2018-10-24] MEDS: MORPHINE SULFATE SR 15 MG TABLET.SA PO SCH ×2 (08:20→20:34)
[2018-10-24] MEDS: DILTIAZEM HCL CD 300 MG CAP.SR.24H PO SCH (08:21)
[2018-10-24] MEDS: CYANOCOBALAMIN 1000 MCG/ML VIAL IM SCH (08:21)
[2018-10-24] MEDS: METOPROLOL TARTRATE 50 MG TABLET PO SCH ×2 (08:21→20:34)
[2018-10-24] MEDS: DOCUSATE SODIUM 250 MG CAPSULE PO SCH (08:21)
[2018-10-24] MEDS: ENOXAPARIN SODIUM 40 MG/0.4 ML DISP.SYRIN SQ SCH (08:29)
[2018-10-24] MEDS: OXYCODONE HCL 5 MG TABLET PO PRN (14:33)
[2018-10-24 15:40] VITALS: BP 133/67
[2018-10-24] MEDS ORDERED: diphenhydrAMINE/ZINC ACET CREAM 28 GM TUBE TOP PRN (16:00)
--- NOTE | 2018-10-24 19:04 | NUR ---
PRN pain medications given for left sided back pain, complaints of bilateral arm itchiness, MD Fleming notified with orders for Benadryl cream BID PRN
[2018-10-24 19:16] VITALS: BP 144/63
[2018-10-24] MEDS: ATORVASTATIN 10 MG TABLET PO SCH (20:33)
[2018-10-24] MEDS: ISOSORBIDE MONONITRATE 60 MG TAB.SR.24H PO SCH (20:33)
[2018-10-24] MEDS: DULOXETINE 30 MG CAPSULE.DR PO SCH (20:34)
[2018-10-24] MEDS: SENNOSIDES 1 TABLET PO SCH (20:34)
[2018-10-24 21:04] VITALS: BP 141/61
--- NOTE | 2018-10-24 21:18 | NUR ---
Received pt resting in bed. AAO x4. No acute distress noted. C/o 3/10 pain on left lower back. Routine pain med and other due meds given as ordered. Pt to be discharge tomorrow, TMS signed and placed in chart. Safety measures maintained. Call light and personal belongings within reach. Will continue to monitor.
[2018-10-25] MEDS: hydrALAZINE HCL 50 MG TABLET PO SCH ×2 (06:06→13:13)
[2018-10-25 06:07] VITALS: BP 166/75
[2018-10-25] MEDS: PANTOPRAZOLE SODIUM 40 MG TABLET.DR PO SCH (06:35)
[2018-10-25] MEDS: DOCUSATE SODIUM 250 MG CAPSULE PO SCH (08:03)
[2018-10-25] MEDS: buPROPion SR 150 MG TABLET.SA PO SCH (08:03)
[2018-10-25] MEDS: DILTIAZEM HCL CD 300 MG CAP.SR.24H PO SCH (08:10)
[2018-10-25] MEDS: MORPHINE SULFATE SR 15 MG TABLET.SA PO SCH (08:10)
[2018-10-25] MEDS: METOPROLOL TARTRATE 50 MG TABLET PO SCH (08:11)
[2018-10-25] MEDS: ENOXAPARIN SODIUM 40 MG/0.4 ML DISP.SYRIN SQ SCH (08:12)
[2018-10-25 08:47] VITALS: BP 145/64
--- NOTE | 2018-10-25 09:06 | NUR ---
Received pt. on bed, comfortable in no distress. A/OX4 verbally responsive and able to make her needs known. Denies CP or SOB. All due medications given and tolerated well. No new skin condition noted. All pt. needs attended and met promptly. Safety measures in place. Call light and all frequently used items within pt. reach.
--- NOTE | 2018-10-25 09:41 | NUR ---
Obtained discharge order from Dr. Fleming. amenable with order to d/c pt. home today 10/25/18 with home health to provide PT/OT/RN services to be arrange by CM. Pt. made aware and will be p/u by sister around 3pm with pvt transportation.
[2018-10-25 13:13] VITALS: BP 115/48
--- NOTE | 2018-10-25 15:24 | NUR ---
Social work consult: grain ii farmworker received consult request from [facility] family preservation caseworker, Kameron, to assist patient in receiving information about disability insurance. grain ii farmworker arrived at patient bedside and introduced self, role, and purpose of visit. Patient requested that she receive information about state and employer disability insurance. grain ii farmworker explained process of collecting disability through the state. grain ii farmworker suggested patient speak with her employers HR department. grain ii farmworker provided patient with state disability resources including "Disability application process", "How to apply for Disability online", and "How to apply for disability by mail". All resources were found on the website: "[place]". Each resource was explained and patient expressed understanding. Patient had no further inquiries. grain ii farmworker will follow-up as needed.
--- NOTE | 2018-10-25 16:03 | NUR ---
Discharge Note: Pt. received all due medication as ordered. Resident remained stable at this time. Dr. Fleming deemed pt. safe for discharge today 10/25/18. Routine round with pt; pt. remain cooperative, A/OX4 with capacity to make decision. Lungs sounds clear to auscultation bilaterally, no respiratory distress. Heart with regular rate and rhythm, no murmur, rub or gallop. Abdomen soft, non-tender, bowel sounds present in all 4 quadrants. Conjunctivae clear, PERRL. Pt. served with lunch as ordered and tolerated well. All belongings are prepared. Inventory done all accountable for. Instructed pt. to follow up with PCP. Pt. teaching provided which include but not limited to meds administration, risk of fall, and skin mgt. Faxed RX to pt. choice of pharmacy ([facility]). 1530 Sister (Lakeisha) arrived on-site. Gave pt. information regarding returning to community. Discharge paper signed by pt. Provided pt. discharge packet with RX. No further questions from the resident and family member about the discharge instructions at this time and verbalized clear understanding. Assisted resident safely via W/C to pvt vehicle. Res. left the facility at 1550 and d/c to home with home health to provide PT/OT/RN services.
== END 2018-10-25 15:50 | disposition home health service (06) | DRG 560 ==
PROVIDERS: ADMIT Physical Medicine & Rehabilitation Pain Medicine; ATTEND Physical Medicine & Rehabilitation Pain Medicine
DX: M80.88XD Other osteoporosis with current pathological fracture, vertebra(e), subsequent encounter for fracture with routine healing (principal); D68.59 Other primary thrombophilia; L97.329 Non-pressure chronic ulcer of left ankle with unspecified severity; I70.3 Atherosclerosis of unspecified type of bypass graft(s) of the extremities; E44.0 Moderate protein-calorie malnutrition; Z90.710 Acquired absence of both cervix and uterus; M47.896 Other spondylosis, lumbar region; E66.9 Obesity, unspecified; Z68.31 Body mass index [BMI] 31.0-31.9, adult; Z71.3 Dietary counseling and surveillance; K59.00 Constipation, unspecified; K21.9 Gastro-esophageal reflux disease without esophagitis; M19.90 Unspecified osteoarthritis, unspecified site; G89.29 Other chronic pain; Z87.891 Personal history of nicotine dependence; M48.061 Spinal stenosis, lumbar region without neurogenic claudication; F32.9 Major depressive disorder, single episode, unspecified; E53.8 Deficiency of other specified B group vitamins; I34.0 Nonrheumatic mitral (valve) insufficiency; Z74.09 Other reduced mobility; M85.88 Other specified disorders of bone density and structure, other site; I11.9 Hypertensive heart disease without heart failure; D64.9 Anemia, unspecified; M51.26 Other intervertebral disc displacement, lumbar region; Z82.49 Family history of ischemic heart disease and other diseases of the circulatory system; M54.5 Low back pain; I73.9 Peripheral vascular disease, unspecified; M85.80 Other specified disorders of bone density and structure, unspecified site
CPT/HCPCS: 36415; 82652; 83735; 84100; 84443; 85025; 92526; 92610; 97110; 97112; 97116; 97165; 97530; 97535; A4663; J1650; J3301; J3420; J3490; Q9966

== ENCOUNTER 2018-10-20 13:00 | Day surgery (SDC) | payer BC, MEDICARE, OTHER ==
[~2018-10-20 13:00] MED LIST changes: +ACET-2154 PO; +ALPR0.255 PO; +ATOR40TA PO; -BALANCED SALT IRRIG SOLN COMB1 500 ML, VANCOMYCIN FOR BSS PLUS 10 MG, GENTAMICIN SULFAT... IO ONE; +BUPR150T5 PO; +DILT300C36 PO; +DOCU250C14 PO; +DULO30CA2 PO; +ENOX40DI SQ; +HYDR100T27 PO; +ISOS60TA4 PO; -NORMAL SALINE 0.5 ML, VANCOMYCIN FOR BSS PLUS 5 MG MC ONE; +PANT40TA4 PO; +SENN-18 PO
== END 2018-10-20 14:49 | disposition still patient (30) ==
LOC: DS 13:00
PROVIDERS: ATTEND Physical Medicine & Rehabilitation Pain Medicine
DX: S32.018A Other fracture of first lumbar vertebra, initial encounter for closed fracture (principal); X58.XXXA Exposure to other specified factors, initial encounter; Y93.9 Activity, unspecified; Y92.89 Other specified places as the place of occurrence of the external cause; Y99.9 Unspecified external cause status; M51.36 Other intervertebral disc degeneration, lumbar region; I10 Essential (primary) hypertension; I73.9 Peripheral vascular disease, unspecified; E66.9 Obesity, unspecified; M19.90 Unspecified osteoarthritis, unspecified site; D64.9 Anemia, unspecified; M54.5 Low back pain
CPT/HCPCS: 70030-TC; 74018